=== PATIENT | male | born 1980 | race African-American/Black ===

== ENCOUNTER 2017-04-10 00:08 | Emergency (ER) | payer BC ==
[2017-04-10] MEDS ORDERED: ACETAMINOPHEN TAB 325 MG TAB PO STA (00:34)
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
--- NOTE | 2017-04-10 01:17 | XR ---
EXAMINATION TYPE: XR wrist complete RT DATE OF EXAM: 04/10/2017 COMPARISON: NONE HISTORY: Wrist pain TECHNIQUE: 4 views FINDINGS: I see no fracture nor dislocation. Joint spaces are normal. Metacarpals are intact. IMPRESSION: Negative right wrist exam
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
[2017-04-10 23:16] VITALS: BP 153/97; PULSE 77; RESP 18; TEMP 97.7
== END 2017-04-10 02:17 | disposition home or self-care (01) ==
LOC: EC 00:08
DX: S06.0X0A Concussion without loss of consciousness, initial encounter (principal); S63.501A Unspecified sprain of right wrist, initial encounter; R11.10 Vomiting, unspecified; Y04.2XXA Assault by strike against or bumped into by another person, initial encounter
CPT/HCPCS: 70450; 99284

== ENCOUNTER 2017-07-14 18:29 | Emergency (ER) | payer BC ==
[2017-07-14 18:35] VITALS: BP 142/96; PULSE 83; RESP 18; TEMP 97.2
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
== END 2017-07-14 19:36 | disposition home or self-care (01) ==
LOC: EC 18:29
DX: M79.642 Pain in left hand (principal); W23.0XXA Caught, crushed, jammed, or pinched between moving objects, initial encounter; Y92.89 Other specified places as the place of occurrence of the external cause
CPT/HCPCS: 99283

== ENCOUNTER 2017-08-29 00:18 | Emergency (ER) | payer BC ==
[2017-08-29] MEDS ORDERED: IBUPROFEN 600 MG TAB PO STA (01:01)
--- NOTE | 2017-08-29 01:03 | ED ---
Upper Extremity HPI - General Chief Complaint: Extremity Injury, Upper Stated Complaint: Chest/collarbone pain Time Seen by Provider: 08/29/17 00:54 Source: patient, family Mode of arrival: ambulatory Limitations: no limitations - History of Present Illness Initial Comments: 37-year-old male patient presents to the emergency department today for evaluation of left shoulder pain. Patient states that approximately 2:00 this afternoon he was lifting a heavy air conditioner when he felt a pop in his left shoulder. Patient states he has been having pain in the shoulder since then. States it might be his Collarbone. He denies any previous injury to the shoulder or clavicle. He denies taking anything for his discomfort. Patient states that he did go to work after this happened and has been lifting heavy things all day. He denies any numbness or tingling to the arm. Denies any other injuries. Patient denies any headache, neck pain, back pain, chest pain, shortness of breath, dizziness, weakness, abdominal pain, nausea, vomiting, or difficulties with bowel movements or urination. - Related Data Previous Rx's Medication Instructions Recorded Ibuprofen [Motrin] 600 mg PO Q8HR PRN #30 tab 08/29/17 Allergies Allergy/AdvReac Type Severity Reaction Status Date / Time No Known Allergies Allergy Verified 08/29/17 00:23 Review of Systems ROS Statement: Those systems with pertinent positive or pertinent negative responses have been documented in the HPI. ROS Other: All systems not noted in ROS Statement are negative. Past Medical History Past Medical History: No Reported History History of Any Multi-Drug Resistant Organisms: None Reported Past Surgical History: No Surgical Hx Reported Past Psychological History: No Psychological Hx Reported Smoking Status: Never smoker Past Alcohol Use History: Occasional Past Drug Use History: None Reported General Exam Limitations: no limitations General appearance: alert, in no apparent distress, other (This is a well- developed, well-nourished adult male patient in no acute distress. Vital signs upon presentation are temperature 97.7F, pulse 66, respirations 20, blood pressure 154/94, pulse ox 100% on room air.) Eye exam: Present: normal appearance, PERRL, EOMI. Absent: scleral icterus, conjunctival injection, periorbital swelling ENT exam: Present: normal exam, normal oropharynx, mucous membranes moist Respiratory exam: Present: normal lung sounds bilaterally. Absent: respiratory distress, wheezes, rales, rhonchi, stridor Cardiovascular Exam: Present: regular rate, normal rhythm, normal heart sounds. Absent: systolic murmur, diastolic murmur, rubs, gallop, clicks Extremities exam: Present: normal inspection, full ROM (To the left shoulder), tenderness (Tenderness over the left clavicle and AC joint), normal capillary refill, other (Skin to the left shoulder and chest is pink, warm, and dry. Cap refills less than 3 seconds to the left upper extremity. Radial pulses 2+ and equal bilaterally.). Absent: pedal edema, joint swelling, calf tenderness Neurological exam: Present: alert, oriented X3, CN II-XII intact Psychiatric exam: Present: normal affect, normal mood Skin exam: Present: warm, dry, intact, normal color. Absent: rash Course Vital Signs 08/29/17 08/29/17 00:19 02:27 Temperature 97.7 F 97.4 F L Pulse Rate 66 71 Respiratory 20 18 Rate Blood Pressure 154/94 146/79 O2 Sat by Pulse 100 99 Oximetry Medical Decision Making - Medical Decision Making 37-year-old male patient presents to the emergency department today for evaluation of left shoulder pain after lifting an air conditioner earlier today. Physical examination is unremarkable. Patient does have some mild mid clavicular tenderness as well as tenderness over the acromioclavicular joint. Neurovascular status is intact. X-rays are obtained of the shoulder and clavicle are normal. We did discuss possibility of a muscular, ligamentous, or tenderness injury. Is instructed to take ibuprofen and apply ice and heat. He is instructed to follow-up with the prevention specialist if his symptoms aren' t improved. Patient has use orthopedics in the past and states he will call them if necessary. He is instructed to follow-up with his primary care physician for recheck in 1-2 days. Return parameters discussed in detail. He verbalizes understanding and agrees with this plan. - Radiology Data Radiology results: report reviewed, image reviewed 2 views of the left clavicle are obtained. These no fracture or dislocation. Joint spaces are normal. Impression by Dr. Blanton shows normal left clavicle. 3 views of the left shoulder obtained. No fracture nor dislocation is noted. Joint spaces are normal. There are no pathologic calcifications. Impression by Dr. Blanton shows normal left shoulder. Disposition Clinical Impression: Left shoulder strain Disposition: HOME SELF-CARE Condition: Good Instructions: Shoulder Sprain (ED) Additional Instructions: Apply ice for the first 24 hours and then switch to warm moist heat. Take anti- inflammatory, ibuprofen for pain control. Follow-up with orthopedics if her symptoms do not improve over the next 1-2 days. Return here immediately for any new, worsening, or concerning symptoms. Prescriptions: Ibuprofen [Motrin] 600 mg PO Q8HR PRN #30 tab PRN Reason: Pain Is patient prescribed a controlled substance at d/c from ED?: No Referrals: Mc Lebron MD [Primary Care Provider] - 1-2 days Time of Disposition: 02:07
--- NOTE | 2017-08-29 01:47 | XR ---
EXAMINATION TYPE: XR clavicle LT DATE OF EXAM: 08/29/2017 COMPARISON: NONE HISTORY: Shoulder pain TECHNIQUE: 2 views FINDINGS: I see no fracture nor dislocation. Joint spaces are normal. IMPRESSION: Normal left clavicle.
--- NOTE | 2017-08-29 01:47 | XR ---
EXAMINATION TYPE: XR shoulder complete LT DATE OF EXAM: 08/29/2017 COMPARISON: NONE HISTORY: Shoulder pain TECHNIQUE: 3 views FINDINGS: I see no fracture nor dislocation. Joint spaces are normal. There are no pathologic calcifi cations. IMPRESSION: Normal left shoulder
[2017-08-29 02:27] VITALS: BP 146/79; PULSE 71; RESP 18; TEMP 97.4
== END 2017-08-29 02:30 | disposition home or self-care (01) ==
LOC: EC 00:18
DX: S46.912A Strain of unspecified muscle, fascia and tendon at shoulder and upper arm level, left arm, initial encounter (principal); X50.0XXA Overexertion from strenuous movement or load, initial encounter; Y92.009 Unspecified place in unspecified non-institutional (private) residence as the place of occurrence of the external cause
CPT/HCPCS: 99283

== ENCOUNTER 2017-12-25 20:07 | Emergency (ER) | payer BC ==
[2017-12-25 21:06] VITALS: BP 144/101; PULSE 67; RESP 18; TEMP 98.2
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
--- NOTE | 2017-12-25 22:07 | XR ---
EXAMINATION TYPE: XR tibia fibula RT DATE OF EXAM: 12/25/2017 COMPARISON: NONE HISTORY: Knee pain. Leg pain TECHNIQUE: 4 views FINDINGS: I see no fracture nor dislocation. Tibia and fibula appear intact. Mid shaft of the tibia a ppears normal. IMPRESSION: Negative right tibia and fibula exam.
== END 2017-12-25 22:20 | disposition home or self-care (01) ==
LOC: EC 20:07
DX: S80.11XA Contusion of right lower leg, initial encounter (principal); W21.11XA Struck by baseball bat, initial encounter
CPT/HCPCS: 99283

== ENCOUNTER 2018-03-01 18:12 | Emergency (ER) | payer BC ==
[2018-03-01 18:21] VITALS: BP 133/89; PULSE 81; RESP 18; TEMP 98.3
--- NOTE | 2018-03-01 18:58 | ED ---
General Adult HPI - General Chief complaint: Extremity Injury, Upper Stated complaint: rash Time Seen by Provider: 03/01/18 18:23 Source: patient, RN notes reviewed Mode of arrival: ambulatory Limitations: no limitations - History of Present Illness Initial comments: Patient is a 37-year-old male presenting to the emergency room today with a chief complaint of a injury to the right elbow. Patient states that yesterday he tripped when he was carrying up a [employer] tree and fell down onto the right elbow. Patient also admits that he noticed a small rash to the volar aspect of the left forearm. Patient states her itchy. He denies any other complaints or symptoms. She states rash started approximately p.m. last night. Patient denies any recent fever, chills, shortness of breath, chest pain, back pain, abdominal pain, nausea or vomiting, numbness or tingling, headaches or visual changes, or any other complaints. - Related Data Previous Rx's Medication Instructions Recorded Hydrocortisone Cream 1 applic TOPICAL TID #1 cream..g. 03/01/18 [Hydrocortisone 1% Cream] Ibuprofen [Motrin] 600 mg PO Q6HR PRN #30 day 03/01/18 diphenhydrAMINE [Benadryl] 1 - 2 tab PO Q6HR PRN #30 capsule 03/01/18 Allergies Allergy/AdvReac Type Severity Reaction Status Date / Time No Known Allergies Allergy Verified 03/01/18 18:21 Review of Systems ROS Statement: Those systems with pertinent positive or pertinent negative responses have been documented in the HPI. ROS Other: All systems not noted in ROS Statement are negative. Past Medical History Past Medical History: No Reported History History of Any Multi-Drug Resistant Organisms: None Reported Past Surgical History: No Surgical Hx Reported Past Psychological History: No Psychological Hx Reported Smoking Status: Never smoker Past Alcohol Use History: Occasional Past Drug Use History: None Reported General Exam - General Exam Comments Initial Comments: General: The patient is awake and alert, in no distress, and does not appear acutely ill. Eye: There is normal conjunctiva bilaterally. No signs of icterus. Ears, nose, mouth and throat: There are moist mucous membranes and no oral lesions. Neck: The neck is supple, there is no tenderness or JVD. Musculoskeletal: Patient does have slight decreased range of motion with extension and flexion -5 with right elbow. Patient will return to the posterior aspect of the olecranon. Radial pulses 2+. No bony tenderness to the right shoulder, wrist. Sensation intact. Strength 5/5. Pulses equal Neurological: A&O x 3. CN II-XII intact, There are no obvious motor or sensory deficits. Coordination appears grossly intact. Speech is normal. Skin: Patient does have small area of redness to the volar aspect of the left forearm measures approximately 2 and half centimeters across. There is some warmth. No fluctuance. No streaking. No sign for infection. area does raffy. Psychiatric: Cooperative, appropriate mood & affect, normal judgment. Limitations: no limitations Course Vital Signs 03/01/18 18:18 Temperature 98.3 F Pulse Rate 81 Respiratory 18 Rate Blood Pressure 133/89 O2 Sat by Pulse 99 Oximetry Medical Decision Making - Medical Decision Making Patient's x-ray reviewed negative for any acute fracture dislocation. Results were discussed with the patient. Patient will be discharged home advised to use ibuprofen. Advised follow-up in 710 days symptoms persist. Patient does have a rash to left forearm which will be treated with topical steroids and Benadryl for itching. No evidence for infection. Signs and symptoms of further concern were discussed with patient in detailed and is advised return to emergency room. He states understanding and is in agreement. Disposition Clinical Impression: Contusion of elbow, right, Contact dermatitis Disposition: HOME SELF-CARE Condition: Good Instructions: Contact Dermatitis (DC) Additional Instructions: Please use medication as discussed. Please follow-up with family doctor in the next 2 days of symptoms have not improved. Please return to emergency room if the symptoms increase or worsen or for any other concerns. Prescriptions: diphenhydrAMINE [Benadryl] 1 - 2 tab PO Q6HR PRN #30 capsule PRN Reason: Allergic Reaction Hydrocortisone Cream [Hydrocortisone 1% Cream] 1 applic TOPICAL TID #1 cream..g. Ibuprofen [Motrin] 600 mg PO Q6HR PRN #30 day PRN Reason: Pain Is patient prescribed a controlled substance at d/c from ED?: No Referrals: Maximo Ordoñez MD [Primary Care Provider] - 1-2 days Time of Disposition: 19:34
--- NOTE | 2018-03-01 19:16 | XR ---
EXAMINATION TYPE: XR elbow complete RT DATE OF EXAM: 03/01/2018 CLINICAL HISTORY: Pain after injury TECHNIQUE: Frontal, lateral and oblique images of the right elbow are obtained. COMPARISON: None FINDINGS: There is no acute fracture/dislocation evident in the right elbow. No abnormal fat pad si gns are seen. The overlying soft tissue appears unremarkable. IMPRESSION: There is no acute fracture or dislocation in the right elbow.
== END 2018-03-01 19:46 | disposition home or self-care (01) ==
LOC: EC 18:12
DX: S50.01XA Contusion of right elbow, initial encounter (principal); L25.9 Unspecified contact dermatitis, unspecified cause; W01.0XXA Fall on same level from slipping, tripping and stumbling without subsequent striking against object, initial encounter; Y93.89 Activity, other specified
CPT/HCPCS: 99283

== ENCOUNTER 2018-04-24 00:16 | Emergency (ER) | payer BC ==
[2018-04-24] MEDS ORDERED: SODIUM CHLORIDE 0.9% 1,000 ML IV STA (00:54)
[2018-04-24] MEDS ORDERED: MECLIZINE 12.5 MG TAB PO STA (00:59)
[2018-04-24 01:31] LABS: Basophils % (A) 0 %; Eosinophils # (A) 0.1 k/uL (0-0.7); Eosinophils % (A) 2 %; HCT 39.6 % (39.0-53.0); HGB 13.6 gm/dL (13.0-17.5); Lymphocytes # (A) 2.4 k/uL (1.0-4.8); Lymphocytes % (A) 35 %; MCH 32.1 pg (25.0-35.0); MCHC 34.2 g/dL (31.0-37.0); MCV 93.7 fL (80.0-100.0); Mean Platelet Volume 6.5; Monocytes # (A) 0.4 k/uL (0-1.0); Monocytes % (A) 6 %; Neutrophils # (A) 3.8 k/uL (1.3-7.7); Neutrophils % (A) 54 %; Platelet Count 277 k/uL (150-450); RBC 4.23 m/uL (4.30-5.90); RDW 13.3 % (11.5-15.5)
[2018-04-24 01:36] LABS: Appearance,Urine Clear (Clear); Bilirubin,Urine Negative (Negative); Blood,Urine Negative (Negative); Color,Urine Yellow; Glucose,Urine (UA) Negative (Negative); Ketones,Urine 1+ (Negative); Leukocyte Esterase,Urine Negative (Negative); Nitrite,Urine Negative (Negative); Protein,Urine Trace (Negative); Specific Gravity,Urine 1.023 (1.001-1.035); Urobilinogen,Urine <2.0 mg/dL (<2.0)
[2018-04-24 01:38] LABS: ALT 41 U/L (21-72); AST 37 U/L (17-59); Albumin 4.3 g/dL (3.5-5.0); Alkaline Phosphatase 91 U/L (38-126); Anion Gap 9 mmol/L; Blood Urea Nitrogen 17 mg/dL (9-20); Calcium 9.5 mg/dL (8.4-10.2); Carbon Dioxide 24 mmol/L (22-30); Chloride 104 mmol/L (98-107); Glucose 101 mg/dL (74-99); Potassium 3.9 mmol/L (3.5-5.1); Sodium 137 mmol/L (137-145); Total Bilirubin 0.9 mg/dL (0.2-1.3); Total Protein 7.3 g/dL (6.3-8.2)
[2018-04-24 01:41] VITALS: RESP 18
[2018-04-24 01:44] LABS: Amphetamine Screen,Urine Not Detected (NotDetected); Barbiturate Screen,Urine Not Detected (NotDetected); Benzodiazepines Screen,Urine Not Detected (NotDetected); Cocaine Screen,Urine Not Detected (NotDetected); Methadone Screen, Urine Not Detected (NotDetected); Opiate Screen,Urine Not Detected (NotDetected); Oxycodone Screen, Urine Not Detected (NotDetected); Phencyclidine Screen,Urine Not Detected (NotDetected); Tricyclic Antidepressant,Urine Not Detected (NotDetected); Urn Cannabinoid Scrn Not Detected (NotDetected)
--- NOTE | 2018-04-24 02:00 | XR ---
EXAMINATION TYPE: XR chest 2V DATE OF EXAM: 04/24/2018 COMPARISON: NONE HISTORY: Short of breath TECHNIQUE: Frontal and lateral views of the chest are obtained. FINDINGS: Heart and mediastinum are normal. Lungs are clear. Diaphragm is normal. Bony thorax appear s normal. There are chest leads. IMPRESSION: Normal chest
--- NOTE | 2018-04-24 02:48 | ED ---
General Adult HPI - General Chief complaint: Shortness of Breath Stated complaint: Syncope Time Seen by Provider: 04/24/18 00:44 Source: patient Mode of arrival: ambulatory Limitations: no limitations - History of Present Illness Initial comments: 37-year-old male patient presents to emergency department today for evaluation of dizziness. Patient states that for the last 3 days he has felt lightheaded with standing. Patient states that today he felt multiple times acute is going to pass out. Patient states that the dizziness seems to be worse in the evening hours. States that he has also had some shortness of breath over the last several days however reports he believes this may be related to anxiety. He denies any chest pain. Denies any cough or hemoptysis. Denies any fevers or chills with this. Denies any ear pain or congestion. Patient states he has had similar episodes of dizziness approximate 6 months ago and was instructed to follow up with cardiology however he never did. He denies any recent head injury. He is reporting a mild headache. States his been eating and drinking without difficulty. Patient denies any recent rash, abdominal pain, nausea, vomiting, diarrhea, constipation, back pain, numbness, tingling, weakness, hematuria, dysuria, urinary urgency, urinary frequency, visual changes, or any other complaints. - Related Data Home Medications Medication Instructions Recorded Confirmed amLODIPine BESYLATE 5 mg PO DAILY 04/24/18 04/24/18 Previous Rx's Medication Instructions Recorded Meclizine HCl 25 mg PO BID #14 tablet 04/24/18 Allergies Allergy/AdvReac Type Severity Reaction Status Date / Time No Known Allergies Allergy Verified 03/01/18 18:21 Review of Systems ROS Statement: Those systems with pertinent positive or pertinent negative responses have been documented in the HPI. ROS Other: All systems not noted in ROS Statement are negative. Past Medical History Past Medical History: No Reported History History of Any Multi-Drug Resistant Organisms: None Reported Past Surgical History: No Surgical Hx Reported Past Psychological History: No Psychological Hx Reported Smoking Status: Never smoker Past Alcohol Use History: Occasional Past Drug Use History: None Reported General Exam Limitations: no limitations General appearance: alert, in no apparent distress, other (This is a well- developed, well-nourished adult male patient in no acute distress. Vital signs upon presentation are temperature 97.5F, pulse 68, respirations 22, blood pressure 151/93, pulse ox 100% on room air.) Eye exam: Present: normal appearance, PERRL, EOMI. Absent: scleral icterus, conjunctival injection, nystagmus, periorbital swelling ENT exam: Present: normal exam, normal oropharynx, mucous membranes moist, TM's normal bilaterally Respiratory exam: Present: normal lung sounds bilaterally. Absent: respiratory distress, wheezes, rales, rhonchi, stridor Cardiovascular Exam: Present: regular rate, normal rhythm, normal heart sounds. Absent: systolic murmur, diastolic murmur, rubs, gallop, clicks GI/Abdominal exam: Present: soft, normal bowel sounds. Absent: distended, tenderness, guarding, rebound, rigid Neurological exam: Present: alert, oriented X3, CN II-XII intact, other ( Strength in all 4 extremities is 5/5.) Psychiatric exam: Present: normal affect, normal mood Skin exam: Present: warm, dry, intact, normal color. Absent: rash Course Vital Signs 04/24/18 04/24/18 04/24/18 00:18 01:03 01:05 Temperature 97.5 F L Pulse Rate 68 Pulse Rate [ 73 72 Cultural Historian ] Respiratory 22 Rate Blood Pressure 151/93 Blood Pressure 142/92 146/101 [Left Arm] O2 Sat by Pulse 100 Oximetry 04/24/18 04/24/18 04/24/18 01:06 01:41 03:04 Temperature 97 F L Pulse Rate 77 Pulse Rate [ 103 H Cultural Historian ] Respiratory 18 18 Rate Blood Pressure 122/75 Blood Pressure 144/107 [Left Arm] O2 Sat by Pulse 97 Oximetry EKG Findings - EKG Comments: EKG Findings:: EKG obtained at 00 29 shows normal sinus rhythm with a ventricular rate of 70, WA interval 126, QRS duration 78, QT 402, QTc 434. No evidence of ST elevation or depression. Medical Decision Making - Medical Decision Making 37-year-old male patient presented to the emergency department today for evaluation of dizziness, near syncope, and shortness of breath. Physical examination was relatively unremarkable. Patient was neurologically intact with no focal deficits. EKG showed normal sinus rhythm. Labs reviewed and are unremarkable. Chest x-ray showed no acute cardio pulmonary process. Patient did receive IV fluids and meclizine here in the department. Upon reevaluation he does report improvement symptoms. Patient did have an increase in heart rate with orthostatic vital signs. He'll be discharged home at this time to follow-up with his primary care physician, he is instructed to discuss possible referral to cardiology to complete testing requested in the past. Return parameters were discussed in detail. He verbalizes understanding and agrees with this plan. - Lab Data Result diagrams: 04/24/18 01:14 04/24/18 01:14 Lab Results 04/24/18 04/24/18 04/24/18 Range/Units 01:14 01:14 01:14 WBC 7.0 (3.8-10.6) k/uL RBC 4.23 L (4.30-5.90) m/uL Hgb 13.6 (13.0-17.5) gm/dL Hct 39.6 (39.0-53.0) % MCV 93.7 (80.0-100.0) fL MCH 32.1 (25.0-35.0) pg MCHC 34.2 (31.0-37.0) g/dL RDW 13.3 (11.5-15.5) % Plt Count 277 (150-450) k/uL Neutrophils % 54 % Lymphocytes % 35 % Monocytes % 6 % Eosinophils % 2 % Basophils % 0 % Neutrophils # 3.8 (1.3-7.7) k/uL Lymphocytes # 2.4 (1.0-4.8) k/uL Monocytes # 0.4 (0-1.0) k/uL Eosinophils # 0.1 (0-0.7) k/uL Basophils # 0.0 (0-0.2) k/uL Sodium 137 (137-145) mmol/L Potassium 3.9 (3.5-5.1) mmol/L Chloride 104 (98-107) mmol/L Carbon Dioxide 24 (22-30) mmol/L Anion Gap 9 mmol/L BUN 17 (9-20) mg/dL Creatinine 1.03 (0.66-1.25) mg/dL Est GFR (CKD-EPI)AfAm >90 (>60 ml/min/1.73 sqM) Est GFR (CKD-EPI)NonAf >90 (>60 ml/min/1.73 sqM) Glucose 101 H (74-99) mg/dL Calcium 9.5 (8.4-10.2) mg/dL Total Bilirubin 0.9 (0.2-1.3) mg/dL AST 37 (17-59) U/L ALT 41 (21-72) U/L Alkaline Phosphatase 91 (38-126) U/L Troponin I <0.012 (0.000-0.034) ng/mL Total Protein 7.3 (6.3-8.2) g/dL Albumin 4.3 (3.5-5.0) g/dL Urine Color Urine Appearance (Clear) Urine pH (5.0-8.0) Ur Specific [place] (1.001-1.035) Urine Protein (Negative) Urine Glucose (UA) (Negative) Urine Ketones (Negative) Urine Blood (Negative) Urine Nitrite (Negative) Urine Bilirubin (Negative) Urine Urobilinogen (<2.0) mg/dL Ur Leukocyte Esterase (Negative) Urine Opiates Screen (NotDetected) Ur Oxycodone Screen (NotDetected) Urine Methadone Screen (NotDetected) Ur Propoxyphene Screen (NotDetected) Ur Barbiturates Screen (NotDetected) U Tricyclic Antidepress (NotDetected) Ur Phencyclidine Scrn (NotDetected) Ur Amphetamines Screen (NotDetected) U Methamphetamines Scrn (NotDetected) U Benzodiazepines Scrn (NotDetected) Urine Cocaine Screen (NotDetected) U Marijuana (THC) Screen (NotDetected) 04/24/18 Range/Units 01:27 WBC (3.8-10.6) k/uL RBC (4.30-5.90) m/uL Hgb (13.0-17.5) gm/dL Hct (39.0-53.0) % MCV (80.0-100.0) fL MCH (25.0-35.0) pg MCHC (31.0-37.0) g/dL RDW (11.5-15.5) % Plt Count (150-450) k/uL Neutrophils % % Lymphocytes % % Monocytes % % Eosinophils % % Basophils % % Neutrophils # (1.3-7.7) k/uL Lymphocytes # (1.0-4.8) k/uL Monocytes # (0-1.0) k/uL Eosinophils # (0-0.7) k/uL Basophils # (0-0.2) k/uL Sodium (137-145) mmol/L Potassium (3.5-5.1) mmol/L Chloride (98-107) mmol/L Carbon Dioxide (22-30) mmol/L Anion Gap mmol/L BUN (9-20) mg/dL Creatinine (0.66-1.25) mg/dL Est GFR (CKD-EPI)AfAm (>60 ml/min/1.73 sqM) Est GFR (CKD-EPI)NonAf (>60 ml/min/1.73 sqM) Glucose (74-99) mg/dL Calcium (8.4-10.2) mg/dL Total Bilirubin (0.2-1.3) mg/dL AST (17-59) U/L ALT (21-72) U/L Alkaline Phosphatase (38-126) U/L Troponin I (0.000-0.034) ng/mL Total Protein (6.3-8.2) g/dL Albumin (3.5-5.0) g/dL Urine Color Yellow Urine Appearance Clear (Clear) Urine pH 6.0 (5.0-8.0) Ur Specific [place] 1.023 (1.001-1.035) Urine Protein Trace H (Negative) Urine Glucose (UA) Negative (Negative) Urine Ketones 1+ H (Negative) Urine Blood Negative (Negative) Urine Nitrite Negative (Negative) Urine Bilirubin Negative (Negative) Urine Urobilinogen <2.0 (<2.0) mg/dL Ur Leukocyte Esterase Negative (Negative) Urine Opiates Screen Not Detected (NotDetected) Ur Oxycodone Screen Not Detected (NotDetected) Urine Methadone Screen Not Detected (NotDetected) Ur Propoxyphene Screen Not Detected (NotDetected) Ur Barbiturates Screen Not Detected (NotDetected) U Tricyclic Antidepress Not Detected (NotDetected) Ur Phencyclidine Scrn Not Detected (NotDetected) Ur Amphetamines Screen Not Detected (NotDetected) U Methamphetamines Scrn Not Detected (NotDetected) U Benzodiazepines Scrn Not Detected (NotDetected) Urine Cocaine Screen Not Detected (NotDetected) U Marijuana (THC) Screen Not Detected (NotDetected) - Radiology Data Radiology results: report reviewed, image reviewed Two-view x-ray of the chest is obtained. Report was reviewed in its entirety. Impression by Dr. Blanton shows no acute cardiopulmonary process. Disposition Clinical Impression: Dizziness Disposition: HOME SELF-CARE Condition: Good Instructions: Near Syncope (ED), Lightheadedness (ED), Dizziness (ED) Additional Instructions: Increase fluids. Rest. Follow-up through primary care physician for recheck in 1-2 days. Discuss referral to cardiology. Take medications as directed. Return immediate for any new, worsening, or concerning symptoms Prescriptions: Meclizine HCl 25 mg PO BID #14 tablet Is patient prescribed a controlled substance at d/c from ED?: No Referrals: Maximo Ordoñez MD [Primary Care Provider] - 1-2 days Time of Disposition: 02:48
[2018-04-24] MEDS ORDERED: IBUPROFEN 600 MG TAB PO STA (02:56)
[2018-04-24 03:06] VITALS: BP 122/75; PULSE 77; TEMP 97
== END 2018-04-24 03:05 | disposition home or self-care (01) ==
LOC: EC 00:16
DX: R42 Dizziness and giddiness (principal); R06.02 Shortness of breath; R51 Headache; Z79.899 Other long term (current) drug therapy
CPT/HCPCS: 36415; 71046; 80053; 80306; 81003; 84484; 85025; 93005; 96360; 99285

== ENCOUNTER 2018-06-28 00:56 | Emergency (ER) | payer BC ==
--- NOTE | 2018-06-28 02:11 | CT ---
EXAM: CT Head Without Intravenous Contrast CLINICAL HISTORY: ITS.REASON CT Reason: Pain TECHNIQUE: Axial computed tomography images of the head/brain without intravenous contrast. CTDI is 45 mGy and DLP is [address] exam was performed using one or more of the following dose reduction techniques: automated exposure control, adjustment of the mA and/or kV according to patient size, and/or use of iterative reconstruction technique. COMPARISON: No relevant prior studies available. FINDINGS: Brain: No hemorrhage. No edema. Ventricles: Unremarkable. No ventriculomegaly. Bones/joints: No acute fracture. Soft tissues: Unremarkable. Sinuses: No fluid levels. Mastoid air cells: Unremarkable as visualized. No mastoid effusion. IMPRESSION: No acute intracranial findings EXAM: CT Cervical Spine Without Intravenous Contrast CLINICAL HISTORY: ITS.REASON CT Reason: Pain TECHNIQUE: Axial computed tomography images of the cervical spine without intravenous contrast. CTDI is 45 mGy and DLP is [address] exam was performed using one or more of the following dose reduction techniques: automated exposure control, adjustment of the mA and/or kV according to patient size, and/or use of iterative reconstruction technique. COMPARISON: No relevant prior studies available. FINDINGS: Vertebrae: No acute fracture. Discs/spinal canal/neural foramina: No suspicious findings. Soft tissues: Unremarkable. IMPRESSION: No acute findings.
--- NOTE | 2018-06-28 02:26 | XR ---
EXAM: XR Right Wrist Complete, 3 or More Views CLINICAL HISTORY: ITS.REASON XR Reason: Pain TECHNIQUE: Frontal, lateral and oblique views of the right wrist. COMPARISON: No relevant prior studies available. FINDINGS: Bones/joints: Unremarkable. No acute fracture. No dislocation. Soft tissues: Unremarkable. No radiopaque foreign body. IMPRESSION: Normal right wrist x-rays.
--- NOTE | 2018-06-28 02:27 | XR ---
EXAM: XR Right Hand Complete, 3 or More Views CLINICAL HISTORY: ITS.REASON XR Reason: Pain TECHNIQUE: Frontal, lateral and oblique views of the right hand. COMPARISON: No relevant prior studies available. FINDINGS: Bones/joints: Unremarkable. No acute fracture. No dislocation. Soft tissues: Unremarkable. No radiopaque foreign body. IMPRESSION: Normal right hand x-rays.
[2018-06-28] MEDS ORDERED: ACETAMINOPHEN TAB 325 MG TAB PO STA (03:07)
--- NOTE | 2018-06-28 03:09 | ED ---
General Adult HPI - General Chief complaint: Fall Stated complaint: Fall-Head and Rt wrist injury Time Seen by Provider: 06/28/18 01:20 Source: patient, RN notes reviewed, old records reviewed Mode of arrival: ambulatory Limitations: no limitations - History of Present Illness Initial comments: 37-year-old male patient presents to ED after sustaining a fall approximately 2 days ago at 7 the morning. Patient reports that he was rushing down stairs, slipped on his back, slid down approximately 20 stairs. Patient portly does have a trauma to his occipital lobe. Patient also reports a pain in his left wrist in the distal ulnar region. Patient reports he has had waxing and waning headache since the fall. Patient denies any loss of consciousness. Patient denies any other complaints. Patient denies any loss of bowel or bladder control, denies any saddle anesthesia. Systemic: Pt denies fatigue, fever/chills, rash. Pt denies weakness, night swea ts, weight loss. Neuro: Pt denies visual disturbances, syncope or pre-syncope. HEENT: Pt denies ocular discharge or irritation, otalgia, rhinorrhea, pharyngitis or notable lymphadenopathy. Cardiopulmonary: Pt denies chest pain, SOB, heart palpitations, dyspnea on exertion. Abdominal/GI: Pt denies abdominal pain, n/v/d. : Pt denies dysuria, burning w/ urination, frequency/urgency. Denies new onset urinary or bowel incontinence. MSK: Pt denies loss of strength or function in extremities. Neuro: Pt denies new onset weakness, paresthesias. - Related Data Home Medications Medication Instructions Recorded Confirmed amLODIPine BESYLATE 5 mg PO DAILY 04/24/18 06/28/18 Previous Rx's Medication Instructions Recorded Meclizine HCl 25 mg PO BID #14 tablet 04/24/18 Allergies Allergy/AdvReac Type Severity Reaction Status Date / Time No Known Allergies Allergy Verified 06/28/18 01:07 Review of Systems ROS Statement: Those systems with pertinent positive or pertinent negative responses have been documented in the HPI. ROS Other: All systems not noted in ROS Statement are negative. Past Medical History Past Medical History: Hypertension History of Any Multi-Drug Resistant Organisms: None Reported Past Surgical History: No Surgical Hx Reported Past Psychological History: No Psychological Hx Reported Smoking Status: Never smoker Past Alcohol Use History: Occasional Past Drug Use History: None Reported General Exam - General Exam Comments Initial Comments: Constitutional: NAD, AOX3, Pt has pleasant affect. HEENT: NC/AT, trachea midline, neck supple, no lymphadenopathy. Posterior pharynx non erythematous, without exudates. External ears appear normal, without discharge. Mucous membranes moist. Eyes PERRLA, EOM intact. There is no scleral icterus. No pallor noted. Cardiopulmonary: RRR, no murmurs, rubs or gallops, no JVD noted. Lungs CTAB in anterior and posterior lazaro. No peripheral edema. Abdominal exam: Abdomen soft and non-distended. Abdomen non-tender to palpation in all 4 quadrants. Bowel sounds active in LLQ. No hepatosplenomegaly. No ecchymosis Neuro: CN II-XII intact. No nuchal rigidity. No cervical spinal tenderness. MSK: Left distal ulna mildly tender to palpation. Full active range of motion. No snuffbox tenderness. Neurovascularly intact. No ecchymoses, no edema. No posterior calf tenderness bilaterally, homans sign negative bilaterally. Posterior tibialis and radial pulse +2 bilaterally. Sensation intact in upper and lower extremities. Full active ROM in upper and lower extremities, 5/5 stregnth. Patient ambulatory without difficulty. Limitations: no limitations Course Vital Signs 06/28/18 01:02 Temperature 98.4 F Pulse Rate 99 Respiratory 16 Rate Blood Pressure 135/96 O2 Sat by Pulse 97 Oximetry Medical Decision Making - Medical Decision Making 37-year-old male patient presents to ED after sustaining a fall approximately 2 days ago at 7 the morning. Patient reports that he was rushing down stairs, slipped on his back, slid down approximately 20 stairs. Patient portly does have a trauma to his occipital lobe. Patient also reports a pain in his left wrist in the distal ulnar region. Patient reports he has had waxing and waning headache since the fall. Patient denies any loss of consciousness. Patient denies any other complaints. Patient denies any loss of bowel or bladder con trol, denies any saddle anesthesia. Pt VSS, afebrile. Physical exam displayed: Left distal ulna mildly tender to palpation. Full active range of motion. No snuffbox tenderness. Neurovascularly intact. No ecchymoses, no edema. No posterior calf tenderness bilaterally, homans sign negative bilaterally. Posterior tibialis and radial pulse +2 bilaterally. Sensation intact in upper and lower extremities. Full active ROM in upper and lower extremities, 5/5 stregnth. Patient ambulatory without difficulty. Plain film of wrist and hand did not display acute pathology. Noncontrast CT of brain and cervical spine not display acute pathology. Repeat neuro exam within normal limits. Patient right wrist placed in Jose Martin wrap. Patient to follow up with primary care provider in 1- 2 days for continued evaluation. Patient to receive clearance for returning to work by occupational health or primary care provider. Case discussed with Dr. Martinez. Disposition Clinical Impression: Fall Disposition: HOME SELF-CARE Condition: Stable Additional Instructions: Patient to adhere to previously discussed treatment plan and will take medication(s) as directed. Patient to follow up with PCP in 1-2 days. Patient to return to ED if symptoms do not improve. Please follow-up with primary care brother 1-2 days. Please receive clearance return to work from primary care provider or occupational health. Follow up with orthopedic consult if symptoms persist. Use nonsteroidal anti- inflammatories as needed for pain. Is patient prescribed a controlled substance at d/c from ED?: No Referrals: None,Stated [Primary Care Provider] - 1-2 days [facility] [NON-[facility]FF] - 1-2 days Ramon Acosta DO [Medical Doctor] - 1-2 days
--- NOTE | 2018-06-28 03:32 | ED ---
Disposition Clinical Impression: Fall Disposition: HOME SELF-CARE Condition: Stable Instructions (If sedation given, give patient instructions): Fall Prevention (ED) Additional Instructions: Patient to adhere to previously discussed treatment plan and will take medication(s) as directed. Patient to follow up with PCP in 1-2 days. Patient to return to ED if symptoms do not improve. Please follow-up with primary care brother 1-2 days. Please receive clearance return to work from primary care provider or occupational health. Follow up with orthopedic consult if symptoms persist. Use nonsteroidal anti- inflammatories as needed for pain. Is patient prescribed a controlled substance at d/c from ED?: No Referrals: Ramon Acosta DO [Medical Doctor] - 1-2 days None,Stated [Primary Care Provider] - 1-2 days [facility] Dayana clarke [NON-STAFF] - 1-2 days
[2018-06-28 03:39] VITALS: BP 142/80; PULSE 96; RESP 18; TEMP 97.7
== END 2018-06-28 03:39 | disposition home or self-care (01) ==
LOC: EC 00:56
DX: S09.90XA Unspecified injury of head, initial encounter (principal); S69.91XA Unspecified injury of right wrist, hand and finger(s), initial encounter; M25.532 Pain in left wrist; I10 Essential (primary) hypertension; Z79.899 Other long term (current) drug therapy; W10.9XXA Fall (on) (from) unspecified stairs and steps, initial encounter; Y92.009 Unspecified place in unspecified non-institutional (private) residence as the place of occurrence of the external cause
CPT/HCPCS: 70450; 72125; 99284

== ENCOUNTER 2018-11-10 00:27 | Emergency (ER) | payer BC ==
[2018-11-10 00:41] VITALS: BP 142/97; PULSE 71; RESP 16; TEMP 98.4
[2018-11-10] MEDS ORDERED: IBUPROFEN 600 MG TAB PO STA (00:50)
--- NOTE | 2018-11-10 01:01 | XR ---
EXAM: XR Right Ankle Complete, 3 or More Views CLINICAL HISTORY: ITS.REASON XR Reason: Pain TECHNIQUE: Frontal, lateral and oblique views of the right ankle. COMPARISON: No relevant prior studies available. FINDINGS: Bones/joints: No acute fracture. No dislocation. Soft tissues: Unremarkable. IMPRESSION: No acute findings.
--- NOTE | 2018-11-10 01:10 | ED ---
Lower Extremity Injury HPI - General Chief Complaint: Extremity Injury, Lower Stated Complaint: Rt ankle injury Time Seen by Provider: 11/10/18 00:44 Source: patient Mode of arrival: ambulatory Limitations: no limitations - History of Present Illness Initial Comments: 38 year-old male patient presents to the emergency department today for evaluation of right ankle pain. Patient states earlier today around 1 PM he was walking down some bleachers when he twisted his ankle and fell. Patient denies hitting his head or losing consciousness during the fall. Denies injuring his neck or back. Patient states he has been having pain to the right ankle since. Patient states he has increased pain with ambulation. Denies taking any medication for his symptoms. Denies any previous injury to the ankle. He is not having any numbness or tingling to the foot. Patient denies any headache, neck pain, back pain, chest pain, shortness of breath, dizziness, weakness, abdominal pain, nausea, vomiting, or difficulties with bowel movements or urination. - Related Data Home Medications Medication Instructions Recorded Confirmed amLODIPine BESYLATE 5 mg PO DAILY 04/24/18 06/28/18 Previous Rx's Medication Instructions Recorded Meclizine HCl 25 mg PO BID #14 tablet 04/24/18 Ibuprofen [Motrin] 600 mg PO Q8HR PRN #30 tab 11/10/18 Allergies Allergy/AdvReac Type Severity Reaction Status Date / Time No Known Allergies Allergy Verified 06/28/18 01:07 Review of Systems ROS Statement: Those systems with pertinent positive or pertinent negative responses have been documented in the HPI. ROS Other: All systems not noted in ROS Statement are negative. Past Medical History Past Medical History: Hypertension History of Any Multi-Drug Resistant Organisms: None Reported Past Surgical History: No Surgical Hx Reported Past Psychological History: No Psychological Hx Reported Smoking Status: Never smoker Past Alcohol Use History: Occasional Past Drug Use History: None Reported General Exam Limitations: no limitations General appearance: alert, in no apparent distress, other (Physical well- developed, well-nourished adult male patient in no acute distress. Vital signs upon presentation are temperature 98.4F, pulse 71, respirations 16, blood pressure 142/97, pulse ox 99% on room air.) Eye exam: Present: normal appearance, PERRL, EOMI. Absent: scleral icterus, conjunctival injection, periorbital swelling ENT exam: Present: normal exam, normal oropharynx, mucous membranes moist Respiratory exam: Present: normal lung sounds bilaterally. Absent: respiratory distress, wheezes, rales, rhonchi, stridor Cardiovascular Exam: Present: regular rate, normal rhythm, normal heart sounds. Absent: systolic murmur, diastolic murmur, rubs, gallop, clicks GI/Abdominal exam: Present: soft, normal bowel sounds. Absent: distended, tenderness, guarding, rebound, rigid Extremities exam: Present: full ROM, tenderness (Right lateral malleolus), normal capillary refill, other (Mild soft tissue swelling surrounding the right lateral malleolus. There is tenderness over the right lateral malleolus. Skin is otherwise warm and dry. Cap refills less than 3 seconds. Pedal and pos ttibial pulses 2+ and equal bilaterally.). Absent: normal inspection, pedal edema, joint swelling, calf tenderness Neurological exam: Present: alert, oriented X3, CN II-XII intact Psychiatric exam: Present: normal affect, normal mood Skin exam: Present: warm, dry, intact, normal color. Absent: rash Course Vital Signs 11/10/18 00:38 Temperature 98.4 F Pulse Rate 71 Respiratory 16 Rate Blood Pressure 142/97 O2 Sat by Pulse 99 Oximetry Medical Decision Making - Medical Decision Making 38 year-old male patient percents to the emergency department today for evaluation of right ankle injury. Physical examination did reveal some tenderness and soft tissue swelling surrounding the right lateral malleolus. Patient had full range of motion. Neurovascular status intact. X-ray was obtained and showed no acute osseous abnormalities. Patient symptoms consistent with sprain of the right ankle. He is placed in ankle stirrup splint. Given ibuprofen for pain control. He is educated regarding rest, ice, elevation. He is instructed to follow-up with his primary care physician for recheck in 1-2 days. He is instructed to have repeat x-rays performed in 7-10 days if pain symptoms persist. Return parameters were discussed in detail. He verbalizes understanding and agrees with this plan. - Radiology Data Radiology results: report reviewed, image reviewed 3 views of the right ankle are obtained. Report was reviewed in its entirety. Impression by Dr. Salvador shows no acute findings. Disposition Clinical Impression: Right ankle sprain Disposition: HOME SELF-CARE Condition: Good Instructions (If sedation given, give patient instructions): Ankle Sprain (ED) Additional Instructions: Use ankle splint for comfort and support. Take ibuprofen for pain control. Rest, ice, elevate ankle. Follow-up with your primary care physician for recheck in 1-2 days. Have repeat x-ray performed in 7-10 days if pain symptoms persist. Return to the emergency department immediately for any new, worsening, or concerning symptoms. Prescriptions: Ibuprofen [Motrin] 600 mg PO Q8HR PRN #30 tab PRN Reason: Pain Is patient prescribed a controlled substance at d/c from ED?: No Referrals: Maximo Ordoñez MD [Primary Care Provider] - 1-2 days Time of Disposition: 01:10
== END 2018-11-10 01:28 | disposition home or self-care (01) ==
LOC: EC 00:27
DX: S93.401A Sprain of unspecified ligament of right ankle, initial encounter (principal); I10 Essential (primary) hypertension; Z79.899 Other long term (current) drug therapy; W01.0XXA Fall on same level from slipping, tripping and stumbling without subsequent striking against object, initial encounter; Y93.01 Activity, walking, marching and hiking
CPT/HCPCS: 73610; 99283; 29515; L4350

== ENCOUNTER 2022-03-16 17:43 | Emergency (ER) | payer BC, OTHER ==
[2022-03-16 17:52] VITALS: TEMP 97.8
[2022-03-16] MEDS ORDERED: TOPICAL SKIN ADHESIVE 1 EACH AMP TOPICAL ONE (19:24)
--- NOTE | 2022-03-16 19:29 | ED ---
Wound/Laceration HPI - General Chief Complaint: Wound/Laceration Stated Complaint: Head injury, [facility] Time Seen by Provider: 03/16/22 19:01 Source: patient, RN notes reviewed Mode of arrival: ambulatory Limitations: no limitations - History of Present Illness Initial Comments: This is a 41-year-old male who presents to the emergency department for a lacera tion to the forehead. States that at work, a metal door hit him in the head. He denies any loss of consciousness. States that the laceration was difficult to control in terms of bleeding initially, however that has since resolved. Denies any significant pain. He is not on any blood thinners. Unsure when his last tetanus vaccine was. This is an [facility] case and urine drug screen and breathalyzer are required. Denies any fevers, chills, sore throat, cough, dyspnea, chest pain, palpitations, abdominal pain, nausea, vomiting, diarrhea, or back pain. Location: face Place: work Patient Tetanus UTD: No Context: accidental - Related Data Home Medications Medication Instructions Recorded Confirmed amLODIPine BESYLATE 5 mg PO DAILY 04/24/18 06/28/18 Previous Rx's Medication Instructions Recorded Meclizine HCl 25 mg PO BID #14 tablet 04/24/18 Ibuprofen [Motrin] 600 mg PO Q8HR PRN #30 tab 11/10/18 Allergies Allergy/AdvReac Type Severity Reaction Status Date / Time No Known Allergies Allergy Verified 06/28/18 01:07 Review of Systems ROS Statement: Those systems with pertinent positive or pertinent negative responses have been documented in the HPI. ROS Other: All systems not noted in ROS Statement are negative. Past Medical History Past Medical History: Hypertension History of Any Multi-Drug Resistant Organisms: None Reported Past Surgical History: No Surgical Hx Reported Past Psychological History: No Psychological Hx Reported Past Alcohol Use History: Occasional Past Drug Use History: None Reported General Exam Limitations: no limitations General appearance: alert, in no apparent distress Head exam: Present: other (1 cm superficial vertical laceration to the right side of the forehead. No active bleeding.) Eye exam: Present: normal appearance, PERRL, EOMI. Absent: scleral icterus, conjunctival injection, periorbital swelling Respiratory exam: Present: normal lung sounds bilaterally. Absent: respiratory distress, wheezes, rales, rhonchi, stridor Cardiovascular Exam: Present: regular rate, normal rhythm, normal heart sounds. Absent: systolic murmur, diastolic murmur, rubs, gallop, clicks Neurological exam: Present: alert, oriented X3, CN II-XII intact Psychiatric exam: Present: normal affect, normal mood Course Vital Signs 03/16/22 03/16/22 17:49 20:25 Temperature 97.8 F Pulse Rate 77 80 Respiratory 16 18 Rate Blood Pressure 137/93 131/88 O2 Sat by Pulse 100 100 Oximetry Procedures - Laceration Laceration #1 Consent Obtained: verbal consent Indication: laceration Site: face Size (cm): 1 Description: linear Depth: simple, single layer Sedation/Analgesia: none Type of Sutures: other (exofin) Medical Decision Making - Medical Decision Making This is a 41-year-old male who presents to the emergency department for a forehead laceration. The laceration and surrounding skin was thoroughly cleansed with hydrogen peroxide. The laceration was very superficial and no active bleeding was noted. Exofin was applied on top of the wound. Patient declined to have his tetanus status updated despite my strongest recommendations. The possibility of a computed tomography scan of the brain was discussed with the patient. Because he had no loss of consciousness, is on no blood thinners, and did not have a severe mechanism of injury, we decided to avoid imaging at this time. He was advised that if he has a worsening headache, changes in vision, or otherwise feels unwell, he should return immediately for imaging. Advised ibuprofen and Tylenol for pain relief. Return precautions reviewed in depth, the patient is instructed to return to the emergency department with any new, worsening, or concerning symptoms. Patient verbalized understanding. This case was discussed in detail with the attending ED physician. Presentation, findings, and treatment plan discussed in detail as well. Disposition Clinical Impression: Forehead laceration, Forehead contusion Disposition: HOME SELF-CARE Instructions (If sedation given, give patient instructions): Laceration (ED), Head Injury (ED), Skin Adhesive Care (ED), Scalp Contusion in Adults (ED) Additional Instructions: Return to the emergency department with any new, worsening, or concerning symptoms. Keep the area dry, do not apply topical medications, and do not rub, scratch, or pick at the wound. The adhesive will naturally fall off within 5-10 days. Alternate with ibuprofen and Tylenol for pain relief. Follow up with your primary care provider in 1-2 days. Is patient prescribed a controlled substance at d/c from ED?: No Referrals: Maximo Ordoñez MD [Primary Care Provider] - 1-2 days
[2022-03-16 20:28] VITALS: BP 131/88; PULSE 80; RESP 18
== END 2022-03-16 20:25 | disposition home or self-care (01) ==
LOC: EC 17:43
DX: S01.81XA Laceration without foreign body of other part of head, initial encounter (principal); I10 Essential (primary) hypertension; Z79.899 Other long term (current) drug therapy; W22.8XXA Striking against or struck by other objects, initial encounter; Y92.89 Other specified places as the place of occurrence of the external cause
CPT/HCPCS: 12011; 99282